=== PATIENT | female | born 1985 | race Caucasian/White ===

== ENCOUNTER 2016-12-07 15:08 | Emergency (ER) | payer BC ==
[~2016-12-07] VITALS: Ht 177.8 cm; Wt 105.0 kg
[2016-12-07] MEDS ORDERED: ASPIRIN 81 MG TABLET CHEW PO ONE (16:00)
[2016-12-07 16:09] LABS: BLOOD UREA NITROGEN 12 mg/dL (7-18)
[2016-12-07 16:18] LABS: IS PT STATUS REG ER OR PRE ER? YES
[2016-12-07 16:32] VITALS: BP 128/79
[2016-12-07] MEDS ORDERED: ASPIRIN 81 MG TABLET CHEW ONE (16:55)
[2016-12-07] MEDS ORDERED: SODIUM CHLORIDE 0.9% 1,000ML IVBOLUS ONE (17:00)
== END 2016-12-07 17:47 | disposition home or self-care (01) ==
LOC: ED 17:31
DX: R07.89 Other chest pain (principal)
CPT/HCPCS: 36415; 71010; 80048; 82040; 84484; 85025; 93005